=== PATIENT | male | born 1980 | race Hispanic/Latino ===

== ENCOUNTER 2018-01-20 09:55 | Emergency (ER) | payer OTHER, MEDICARE, BC ==
[2018-01-20 10:01] VITALS: BP 113/65; PULSE 87; TEMP 97; O2SAT 97
[2018-01-20 10:02] VITALS: BMI 23.6
--- NOTE | 2018-01-20 10:24 | ED PDOC ---
HPI: Back Time Seen by Provider: 01/20/18 10:12 Chief Complaint (Nursing): Back Pain History Per: Patient Onset/Duration Of Symptoms: Days (2) Quality Of Discomfort: Sharp Severity: Moderate Pain Scale Rating Of: 5 Previous Symptoms: Back Pain Associated Symptoms: None Exacerbating Factor(s): Nothing Additional Complaint(s): Sharp low back pain radiating upward and downward. Started yesterday after placement of spinal chord stimulator. Denies fever. Denies waekness or parasthesias. No urinary sxs. H/o vertebral fx 6 yrs ago Past Medical History Vital Signs: Last Vital Signs Temp 97 F L 01/20/18 10:00 Pulse 87 01/20/18 10:00 Resp BP 113/65 01/20/18 10:00 Pulse Ox 97 01/20/18 10:00 - Medical History Other PMH: Thoracic vertebral fx - Family History Family History: States: Unknown Family Hx - Allergies Allergies/Adverse Reactions: Allergies Allergy/AdvReac Type Severity Reaction Status Date / Time Unobtainable Allergy Verified 01/20/18 10:13 Review of Systems Constitutional: Negative for: Fever Genitourinary Male: Negative for: Incontinence Musculoskeletal: Positive for: Back Pain Neurological: Negative for: Weakness, Numbness Physical Exam - Physical Exam Appears: Positive for: Non-toxic, No Acute Distress Back: Positive for: Normal Inspection, Other (leads protruding from lumbar region. No surrounding erythema or drainage). Negative for: Vertebral Tenderness Neurologic/Psych: Positive for: Alert, Oriented. Negative for: Motor/Sensory Deficits - ECG O2 Sat by Pulse Oximetry: 97 Medical Decision Making Medical Decision Making: Spinal cord stimulator leads removed intact. No bleeding or drainage Disposition - Clinical Impression Clinical Impression: Spinal cord stimulator dysfunction - Patient ED Disposition Is Patient to be Admitted: No - Disposition Disposition: Routine/Home Disposition Time: 10:49 Condition: FAIR Instructions: Spinal Cord Stimulation Forms: SMR SITE (Telugu)
--- NOTE | 2018-01-20 10:50 | RAD ---
Date of service: 01/20/2018 PROCEDURE: Radiographs of the Lumbar Spine. HISTORY: pain at lead placement site COMPARISON: No prior. FINDINGS: BONES: Normal alignment. No listhesis. No acute fracture. DISC SPACES: Unremarkable. OTHER FINDINGS: Right lower thoracic neurostimulator battery pack with leads entering the spinal canal at the T12-L1 level. IMPRESSION: No acute fracture.
== END 2018-01-20 10:55 | disposition home or self-care (01) ==
LOC: H.ER 09:55
DX: M53.80 Other specified dorsopathies, site unspecified (principal)